=== PATIENT | male | born 1960 | race Two or more races ===

== ENCOUNTER 2016-10-29 00:04 | Observation (INO) | payer OTHER ==
[~2016-10-29] VITALS: Ht 170.2 cm; Wt 86.2 kg
[2016-10-29 00:54] LABS: Basophils # (auto) 0 uL; Basophils % (auto) 0.2 % (0.0-2.0); Eosinophils # (auto) 0 uL; Eosinophils % (auto) 0.4 % (0.0-7.0); Hematocrit 39.5 % (41.0-53.0); Hemoglobin 13.3 g/dL (13.5-17.5); Lymphocytes # (auto) 0.8 uL; Lymphocytes % (auto) 7.6 % (10.0-50.0); Mean Corpuscular Hemoglobin 30.3 pg (28.0-32.0); Mean Corpuscular Hgb Conc. 33.5 g/dL (32.0-36.0); Mean Corpuscular Volume 90.3 fL (80.0-100.0); Mean Platelet Volume 7.9 fL (7.4-10.4); Monocytes # (auto) 0.4 uL; Monocytes % (auto) 3.9 % (0.0-12.0); Neutrophils # (auto) 8.9 uL; Neutrophils % (auto) 87.9 % (37.0-80.0); Platelet Count (auto) 243 10^3/uL (140-450); Red Cell Distribution Width 13.8 % (11.6-16.0); White Blood Cell 10.1 10^3/uL (4.4-10.8)
[2016-10-29 01:10] LABS: INR 1.1 (0.9-1.15); Partial Thromboplastin Time 26.1 sec (22.64-33.71); Prothrombin Time 11.3 sec (9.37-12.3)
[2016-10-29 01:13] LABS: Albumin 3.4 g/dL (3.4-5.0); BUN/Creatinine Ratio 7.7; Calcium 8.1 mg/dL (8.5-10.1); Potassium 3.7 mmol/L (3.5-5.1)
[2016-10-29 01:16] LABS: Bilirubin, Total 0.2 mg/dL (0.2-1.0)
[2016-10-29] MEDS ORDERED: LORazepam 2MG/ML-1ML VIAL IV ONE (03:45)
[2016-10-29] MEDS ORDERED: OXYMETAZOLINE HCL 0.05 % NASAL SPRAY 15ML ONE (05:30)
[2016-10-29 05:54] LABS: Urine Color Yellow (Yellow)
[2016-10-29 05:55] LABS: Urine Bilirubin Negative (Negative); Urine Blood TRACE /uL (Negative); Urine Glucose Normal (Normal); Urine Ketone 2+ (Negative); Urine Urobilinogen Normal (Negative)
[2016-10-29 05:56] LABS: Urine Nitrite Negative (Negative)
[2016-10-29 06:00] VITALS: BP 143/78
[2016-10-29 06:10] LABS: Urine Hyaline Cast FEW /lpf (0 - 2); Urine Mucus FEW (None Seen); Urine RBC 3 /hpf (0 - 3); Urine Squamous Epithelial Cell FEW /hpf (<5)
== END 2016-10-29 07:57 | disposition home or self-care (01) | DRG 101 ==
LOC: EDBD 00:04 → ER 00:12 → OVERFLOW 04:06 → ER 07:57
PROVIDERS: ADMIT Emergency Medicine; ATTEND Emergency Medicine
DX: G40.909 Epilepsy, unspecified, not intractable, without status epilepticus (principal); F19.10 Other psychoactive substance abuse, uncomplicated; R51 Headache; R53.1 Weakness; R42 Dizziness and giddiness; E11.9 Type 2 diabetes mellitus without complications; Z87.820 Personal history of traumatic brain injury
CPT/HCPCS: 36415; 70450; 72125; 80053; 80156; 80164; 81001; 85025; 85610; 85730; 99285; G0378; G0434

== ENCOUNTER 2019-05-23 23:32 | Inpatient (IN) | payer OTHER ==
[~2019-05-23] VITALS: Ht 180.3 cm; Wt 116.0 kg
[2019-05-23] MEDS ORDERED: ETOMIDATE (2MG/ML) 20ML VIAL IV ONE (23:41)
[2019-05-23] MEDS ORDERED: SUCCINYLCHOLINE CHLORIDE 20 MG/ML 10ML VIAL IV ONE (23:42)
[2019-05-23] MEDS: NOREPINEPHRINE 8 MG/250ML KIT 250 ML IV SCH (23:45)
[2019-05-23] MEDS ORDERED: PROPOFOL 100 ML IV ONE (23:54)
[2019-05-24] VITALS (48 sets, daily range): BP systolic 103–168; BP diastolic 62–91
[2019-05-24] MEDS ORDERED: ETOMIDATE (2MG/ML) 20ML VIAL IV ONE
[2019-05-24] MEDS ORDERED: SUCCINYLCHOLINE CHLORIDE 20 MG/ML 10ML VIAL IV ONE
[2019-05-24] MEDS ORDERED: ACCU-CHEK COMFORT CURVE STRIP VI ONE
[2019-05-24] MEDS: PROPOFOL 100 ML IV SCH ×3 (00:02→20:12)
[2019-05-24 00:18] LABS: Basophils # (auto) 0.1 uL; Basophils % (auto) 0.5 % (0.0-2.0); Eosinophils # (auto) 0.1 uL; Eosinophils % (auto) 0.6 % (0.0-7.0); Hemoglobin 14.4 g/dL (13.5-17.5); Lymphocytes % (auto) 21.3 % (10.0-50.0); Mean Corpuscular Hemoglobin 30.7 pg (28.0-32.0); Mean Corpuscular Hgb Conc. 32.7 g/dL (32.0-36.0); Mean Corpuscular Volume 93.9 fL (80.0-100.0); Monocytes # (auto) 0.6 uL; Monocytes % (auto) 4.1 % (0.0-12.0); Neutrophils # (auto) 10.2 uL; Neutrophils % (auto) 73.5 % (37.0-80.0); Nucleated Red Blood Cells % 0.1 %; Platelet Count (auto) 292 10^3/uL (140-450); Red Blood Cells 4.69 10^6/uL (4.5-5.90); Red Cell Distribution Width 14.4 % (11.8-14.3); White Blood Cell 13.9 10^3/uL (4.4-10.8)
[2019-05-24 00:32] LABS: INR 1.02 (0.9-1.15); Partial Thromboplastin Time 25.6 sec (23.64-32.05)
[2019-05-24 00:36] LABS: Urine Bacteria NONE SEEN /hpf (None Seen); Urine Blood TRACE /uL (Negative); Urine Hyaline Cast MANY /lpf (0 - 2); Urine Mucus FEW (None Seen); Urine Specific Gravity 1.019 (1.001-1.035); Urine WBC 3 /hpf (0 - 3)
[2019-05-24 00:37] LABS: Albumin 3.7 g/dL (3.4-5.0); BUN/Creatinine Ratio 8.3; Calcium 8.3 mg/dL (8.5-10.1); Phenytoin (Dilantin) 0.5 ug/mL (10-20); Potassium 3.8 mmol/L (3.5-5.1)
[2019-05-24 00:39] LABS: Bilirubin, Total 0.2 mg/dL (0.2-1.0); Total Protein 8.7 g/dL (6.4-8.2)
[2019-05-24 00:57] LABS: Lactic Acid w/Reflex 8.4 mmol/L (0.4-2.0)
[2019-05-24] MEDS: MIDAZOLAM DRIP 50 mg/50mL 50 ML IV SCH ×4 (00:59→20:13)
[2019-05-24] MEDS ORDERED: SODIUM CHLORIDE 0.9% 3,800 ML IV ONE (01:45)
[2019-05-24] MEDS ORDERED: VANCOMYCIN 1GM/250ML 250 ML IV ONE (01:45)
[2019-05-24] MEDS ORDERED: PIPERACILLIN-TAZOB 3.375GM 100 ML IV ONE (01:45)
[2019-05-24] MEDS ORDERED: LEVETIRACETAM INJ 1,000 MG in D5W 5% 100 ML IV ONE (03:15)
[2019-05-24 03:17] LABS: Alcohol, Urine < 3.0 mg/dL (0-5); Amphetamine Screen, Urine NEGATIVE (NEGATIVE); Barbiturate Scree,Urine NEGATIVE (NEGATIVE); Benzodiazephine Screen, Urine POSITIVE (NEGATIVE); Cannabinoid Screen, Urine NEGATIVE (NEGATIVE); Cocaine Screen, Urine NEGATIVE (NEGATIVE); Opiate Scree,Urine NEGATIVE (NEGATIVE); Phencyclidine Screen, Urine NEGATIVE (NEGATIVE)
[2019-05-24] MEDS ORDERED: LEVETIRACETAM 500 MG/5ML INJ IV ONE (03:23)
[2019-05-24] MEDS ORDERED: NITROGLYCERIN 0.4 MG SL TAB SL PRN (06:00)
[2019-05-24] MEDS: InsuLIN REG 1unit/0.01ml Soln (100units/ml) SC SCH ×4 (06:00→23:32)
[2019-05-24] MEDS ORDERED: ACETAMINOPHEN 325 MG TAB PO PRN (06:00)
[2019-05-24] MEDS ORDERED: MORPHINE SULF INJ 2 MG/ML SYRINGE 1ML IV PRN (06:00)
[2019-05-24] MEDS ORDERED: DEXTROSE (50%) 50ML SYRG IV PRN (06:00)
[2019-05-24] MEDS ORDERED: ONDANSETRON HCL 4 MG/2 ML VIAL IV PRN (06:00)
[2019-05-24] MEDS: ACCU-CHEK COMFORT CURVE STRIP VI SCH ×4 (06:13→23:31)
[2019-05-24] MEDS: SODIUM CHLORIDE 0.9% 1,000 ML IV SCH ×2 (06:31→21:54)
--- NOTE | 2019-05-24 08:05 | NUR ---
RT NOTE: PT. TRANSFERRED TO ICU 112 WITHOUT INCIDENT WITH RN ANIBAL AND [employer] INSTALLER HELPERTIFF POMPA. SENIOR CARE MANAGER IN PLACE. PT. BAGGED WITH 100% O2. PT. PLACED ON VENT WITH ORDERED SETTINGS.
--- NOTE | 2019-05-24 08:10 | NUR ---
Admit to ICU from ER on vent KWAME MOSQUERA admitted to ICU via gurney on bus monitor, intubated and being bagged by Respiratory Therapist. Patient transfered to bed, connected to mechanical ventilator by therapist, CARL at bedside. Patient connected to ICU monitoring, weighed by bedscale, oriented to Maya vargas RN, unit, ventilator and sedation. NOTE:
--- NOTE | 2019-05-24 08:58 | NUR ---
PLACED CON. Noe/ ON HIS CELLPHONE. HE STATED HE WOULD COME SEE THE PATIENT. RN NOTIFIED.
[2019-05-24 09:52] LABS: Basophils # (auto) 0.1 uL; Basophils % (auto) 0.5 % (0.0-2.0); Eosinophils # (auto) 0 uL; Eosinophils % (auto) 0.5 % (0.0-7.0); Hematocrit 35.5 % (41.0-53.0); Hemoglobin 12.3 g/dL (13.5-17.5); Lymphocytes # (auto) 2.3 uL; Lymphocytes % (auto) 23.3 % (10.0-50.0); Mean Corpuscular Hemoglobin 32.1 pg (28.0-32.0); Mean Corpuscular Hgb Conc. 34.7 g/dL (32.0-36.0); Mean Corpuscular Volume 92.7 fL (80.0-100.0); Monocytes # (auto) 0.7 uL; Monocytes % (auto) 7.1 % (0.0-12.0); Neutrophils # (auto) 6.7 uL; Neutrophils % (auto) 68.6 % (37.0-80.0); Nucleated Red Blood Cells % 0.1 %; Platelet Count (auto) 202 10^3/uL (140-450); Red Blood Cells 3.83 10^6/uL (4.5-5.90); White Blood Cell 9.7 10^3/uL (4.4-10.8)
[2019-05-24] MEDS ORDERED: LEVOFLOXACIN 500MG 100 ML IV SCH (10:00)
[2019-05-24 10:15] LABS: Potassium 3.7 mmol/L (3.5-5.1)
[2019-05-24] MEDS ORDERED: cefTRIAXone 1GM/50ML D5W 50 ML IV ONE (10:15)
[2019-05-24] MEDS ORDERED: VANCOMYCIN PER PHARMACY 0 MG IV SCH (10:15)
--- NOTE | 2019-05-24 10:20 | NUR ---
at bedside - examines patient and speaks with patient's daughter at bedside - orders received.
[2019-05-24] MEDS ORDERED: LORazepam 2MG/ML-1ML VIAL IV PRN (10:30)
[2019-05-24 11:23] LABS: Calcium 6.2 mg/dL (8.5-10.1)
[2019-05-24 11:25] LABS: BUN/Creatinine Ratio 7.5
--- NOTE | 2019-05-24 11:35 | NUR ---
notified of BUN and Cr this am - orders received.
[2019-05-24] MEDS: FAMOTIDINE (10MG/ML) 2ML VL IV SCH ×2 (11:37→21:53)
[2019-05-24] MEDS: ENOXAPARIN SOD 40 MG/0.4 ML SYRINGE SC SCH (11:41)
--- NOTE | 2019-05-24 12:50 | NUR ---
Arthur CADENA at bedside placing PICC line.
[2019-05-24] MEDS: VANCOMYCIN 1,500 MG in D5W 5% 250 ML IV SCH ×2 (13:22→22:55)
--- NOTE | 2019-05-24 13:32 | NUR ---
PICC line placement Patient significant other educated on need for PICC line placement. All risks and benefits explained and all questions and concerns addressed prior to procedure. Noted past medical history and allergies with no contraindications. INR and Plt counts within acceptable range. 5fr PICC line inserted via right basilic vein using [employer] US and Tip Location System. Sterile technique with maximum barrier precautions utilized. Blood return obtained from each of 3 lumens and each flushed easily with NS using proper technique. PICC secured with Stat-lock; biodisc and occlusive dressing applied. Stat portable chest x-ray obtained for PICC tip placement. *Baseline Arm Circumference 32cm. PICC lot #[id number]. INTERNAL LENGTH 50CM EXTERNAL LENGTH 2 CM
--- NOTE | 2019-05-24 13:52 | NUR ---
OK to use PICC line Xray completed. OK to use PICC line by RADIOLOGIST REPORT. NURSE ADEN NOTIFIED.
--- NOTE | 2019-05-24 13:55 | NUR ---
visits et examines patient - no new orders received.
--- NOTE | 2019-05-24 14:15 | NUR ---
visits et examines patient - orders received.
[2019-05-24] MEDS ORDERED: LEVETIRACETAM INJ 1,000 MG in D5W 5% 100 ML IV SCH (15:00)
--- NOTE | 2019-05-24 16:30 | NUR ---
Temp 100.0 - cooling measures started and ice backs applied to bilat axilla, groin - will continue to monitor temp.
[2019-05-24] MEDS: LEVETIRACETAM INJ 1,000 MG in D5W 5% 100 ML IV SCH (16:47)
[2019-05-24] MEDS ORDERED: LEVE500T22 PO (17:48)
[2019-05-24] MEDS ORDERED: METF-370 PO (17:48)
[2019-05-24] MEDS ORDERED: OXYM0.0511 NAS (17:48)
[2019-05-24] MEDS ORDERED: GLIP-102 PO (17:48)
[2019-05-24] MEDS ORDERED: DIVA500T53 PO (17:48)
[2019-05-24] MEDS ORDERED: GREE250C PO (17:48)
[2019-05-24] MEDS ORDERED: CARB200T PO (17:48)
[2019-05-24] MEDS ORDERED: MULT1TAB61 PO (17:48)
[2019-05-24] MEDS ORDERED: FLUO0.0127 OT (17:48)
[2019-05-24] MEDS ORDERED: ATOR20TA PO (17:48)
[2019-05-24] MEDS ORDERED: DIPH25CA66 PO (17:48)
--- NOTE | 2019-05-24 19:30 | NUR ---
Opening notes Assumed care, laying on bed, intubated and sedated with versed and propofol infusing in the right upper arm, NGT in place, PIV's in both hands patent and intact, rodgers catheter draining to a clear, yellow urine, SCD's to bilateral legs. Bed in lowest position with padded side rails up, bed alarm on. Will continue care.
--- NOTE | 2019-05-24 19:30 | NUR ---
Opening Shift Note Received pt on mechanical ventilator sedated on versed gtt and propofol gtt. Pt rodriguez snot open eyes to stimuli, but withdraws to pain. Positive cough/gag. Pupils are 3 and sluggish, round bilaterally. Full assessment done see interventions. OGT in place clamped and placement verified. JETT PICC line, dressing CDI, with good blood return in 3 ports. See IV spreadsheet for infusion details. Skin assessment done see interventions. Abdomen large round, and soft. All pulses palpable. Rectal temp monitoring in place, pt at 99.0 f. Padded side rails, bed rails up x2, bed locked in lowest position. All alarms on and audible. Pt in full view of RN. No indications of pain present. VSS. Will continue to monitor closely. Addendum: 05/25/19 at 4998 by AURELIO CERDA RN WRONG DATE ENTERED. CORRECT DATE: 05/25 AT 1930.
--- NOTE | 2019-05-24 20:00 | NUR ---
Swelling on right hand noted, IV discontinued, pressure dressing applied.
[2019-05-24 20:10] LABS: BUN/Creatinine Ratio 3.6; Calcium 6.9 mg/dL (8.5-10.1); Potassium 3.6 mmol/L (3.5-5.1)
[2019-05-24] MEDS: VALPROATE INJ 500 MG in SODIUM CHL 0.9% 100 ML IV SCH (21:47)
[2019-05-24] MEDS: NOREPINEPHRINE 8 MG/250ML KIT 250 ML IV SCH (23:45)
[2019-05-25] VITALS (102 sets, daily range): BP systolic 136–168; BP diastolic 66–81
[2019-05-25] MEDS: LEVETIRACETAM INJ 1,000 MG in D5W 5% 100 ML IV SCH ×4 (00:32→22:59)
[2019-05-25] MEDS: MIDAZOLAM DRIP 50 mg/50mL 50 ML IV SCH ×3 (01:44→19:41)
[2019-05-25] MEDS: PROPOFOL 100 ML IV SCH ×2 (03:00→08:45)
--- NOTE | 2019-05-25 03:58 | NUR ---
Patient bathe/linen change Patient given complete bath. Skin integrity assessed for any changes. Linens and gown changed. Patient repositioned for comfort.
[2019-05-25 04:32] LABS: Basophils # (auto) 0 uL; Basophils % (auto) 0.4 % (0.0-2.0); Eosinophils # (auto) 0 uL; Eosinophils % (auto) 0.4 % (0.0-7.0); Hemoglobin 13.5 g/dL (13.5-17.5); Lymphocytes # (auto) 3.1 uL; Lymphocytes % (auto) 31.8 % (10.0-50.0); Mean Corpuscular Hemoglobin 31.1 pg (28.0-32.0); Mean Corpuscular Hgb Conc. 33.8 g/dL (32.0-36.0); Mean Corpuscular Volume 91.8 fL (80.0-100.0); Monocytes # (auto) 0.7 uL; Monocytes % (auto) 6.9 % (0.0-12.0); Neutrophils % (auto) 60.5 % (37.0-80.0); Platelet Count (auto) 223 10^3/uL (140-450); Red Blood Cells 4.36 10^6/uL (4.5-5.90); Red Cell Distribution Width 14.2 % (11.8-14.3); White Blood Cell 9.9 10^3/uL (4.4-10.8)
[2019-05-25 04:52] LABS: BUN/Creatinine Ratio 4.1; Calcium 8.1 mg/dL (8.5-10.1); Potassium 3.6 mmol/L (3.5-5.1)
[2019-05-25 04:55] LABS: Bilirubin, Total 0.2 mg/dL (0.2-1.0); Total Protein 7.5 g/dL (6.4-8.2)
[2019-05-25] MEDS: ACCU-CHEK COMFORT CURVE STRIP VI SCH ×3 (05:25→18:20)
[2019-05-25] MEDS: VALPROATE INJ 500 MG in SODIUM CHL 0.9% 100 ML IV SCH ×3 (05:31→21:40)
[2019-05-25] MEDS: InsuLIN REG 1unit/0.01ml Soln (100units/ml) SC SCH ×3 (05:31→18:20)
[2019-05-25] MEDS: SODIUM CHLORIDE 0.9% 1,000 ML IV SCH ×2 (07:00→19:41)
--- NOTE | 2019-05-25 09:00 | NUR ---
NEURO PATIENT WITHDRAWS EASILY TO PAIN, PERRLA 3MM AND BRISK, ACTIVE COUGH/GAG REFLEX NOTED. SEDATION VACATION HELD. PATIENT MOVING BILAT UPPER EXTREMITIES FREQUENTLY - VERSED INCREASED - WILL CONTINUE TO MONITOR. Addendum: 05/25/19 at 1621 by Maya Meyer RN Amended: Links added.
--- NOTE | 2019-05-25 09:20 | NUR ---
EEG COMPLETED AT BEDSIDE. RN ADEN AWARE.
[2019-05-25] MEDS: cefTRIAXone 1GM/50ML D5W 50 ML IV SCH (10:10)
[2019-05-25] MEDS: FAMOTIDINE (10MG/ML) 2ML VL IV SCH ×2 (10:28→21:40)
[2019-05-25] MEDS: ENOXAPARIN SOD 40 MG/0.4 ML SYRINGE SC SCH (10:29)
[2019-05-25] MEDS: VANCOMYCIN 1,500 MG in D5W 5% 250 ML IV SCH ×2 (12:54→23:37)
[2019-05-25] MEDS: NOREPINEPHRINE 8 MG/250ML KIT 250 ML IV SCH (23:45)
[2019-05-26] VITALS (93 sets, daily range): BP systolic 117–160; BP diastolic 54–78
[2019-05-26] MEDS: InsuLIN REG 1unit/0.01ml Soln (100units/ml) SC SCH ×4 (00:13→18:01)
[2019-05-26] MEDS: ACCU-CHEK COMFORT CURVE STRIP VI SCH ×4 (00:13→18:01)
--- NOTE | 2019-05-26 02:58 | NUR ---
BILATERAL MITTENS APPLIED FOR PT SAFETY, SEDATION IS BEING TITRATED DOWN FOR C/PAP TRIAL IN AM.
[2019-05-26 04:17] LABS: Basophils # (auto) 0.1 uL; Basophils % (auto) 0.9 % (0.0-2.0); Eosinophils # (auto) 0.1 uL; Hematocrit 37.6 % (41.0-53.0); Lymphocytes # (auto) 1.3 uL; Lymphocytes % (auto) 16.1 % (10.0-50.0); Mean Corpuscular Hemoglobin 31.9 pg (28.0-32.0); Mean Corpuscular Hgb Conc. 34.6 g/dL (32.0-36.0); Mean Corpuscular Volume 92.3 fL (80.0-100.0); Monocytes # (auto) 0.6 uL; Monocytes % (auto) 7.5 % (0.0-12.0); Neutrophils % (auto) 74.5 % (37.0-80.0); Platelet Count (auto) 196 10^3/uL (140-450); Red Blood Cells 4.08 10^6/uL (4.5-5.90); Red Cell Distribution Width 14.1 % (11.8-14.3); White Blood Cell 8.1 10^3/uL (4.4-10.8)
[2019-05-26 04:32] LABS: Albumin 2.7 g/dL (3.4-5.0); BUN/Creatinine Ratio 4.3; Calcium 8.1 mg/dL (8.5-10.1); Potassium 3.4 mmol/L (3.5-5.1)
[2019-05-26 04:34] LABS: Bilirubin, Total 0.4 mg/dL (0.2-1.0); Total Protein 7.2 g/dL (6.4-8.2)
--- NOTE | 2019-05-26 04:58 | NUR ---
CARES PT GIVEN BED BATH AND PARTIAL LINEN CHANGE PERFORMED. PT HAD DARK BROWN BM SMEAR. SKIN INTEGRITY ASSESSED FOR ANY CHANGES, NONE NOTED. ORAL CARE RENDERED. WILL CONTINUE CARE.
[2019-05-26] MEDS: VALPROATE INJ 500 MG in SODIUM CHL 0.9% 100 ML IV SCH ×3 (05:31→21:24)
--- NOTE | 2019-05-26 05:37 | NUR ---
IV removal IV TO LEFT HAND DC'd with sterile technique, catheter fully intact. Pressure dressing applied to site. Patient tolerated procedure well.
[2019-05-26] MEDS: LEVETIRACETAM INJ 1,000 MG in D5W 5% 100 ML IV SCH ×3 (07:16→23:00)
--- NOTE | 2019-05-26 07:31 | NUR ---
End of Shift Note PT awakens easily while off sedation but does not follow commands and attempting to pull at ET tube and pull mittens off. Report given to SURINDER Dexter to assume care.
[2019-05-26] MEDS: SODIUM CHLORIDE 0.9% 1,000 ML IV SCH (08:00)
[2019-05-26] MEDS ORDERED: POTASSIUM CHLORIDE 20 MEQ, LIDOCAINE 1% (LOCAL ANESTH.) 2 ML in SODIUM CHL 0.9% 100 ML IV ONE (09:30)
--- NOTE | 2019-05-26 09:45 | NUR ---
DR LITTLE VISITS AND EXAMINES PATIENT - NEW ORDERS RECEIVED.
--- NOTE | 2019-05-26 09:50 | NUR ---
SEDATION OF MAXIMERIVAN AND VERSED TURNED OFF FOR PENDING CPAP TRIAL.
--- NOTE | 2019-05-26 09:50 | NUR ---
Respiratory note: PAGED TO ICU 112 TO BEGIN CPAP. COULD NOT START CPAP TRIAL DUE TO PT STILL BEING SEDATED ON VERSED, AND DIPRIVAN. RN STOPPED SEDATION AT 0950. RN AND I AGREED THAT WE WILL ATTEMPT CPAP TRIAL WHEN PT IS COMPLETELY OFF OF SEDATION, AND CAN RESPOND TO VERBAL COMMANDS.
[2019-05-26] MEDS: cefTRIAXone 1GM/50ML D5W 50 ML IV SCH (10:02)
[2019-05-26] MEDS: ENOXAPARIN SOD 40 MG/0.4 ML SYRINGE SC SCH (10:25)
[2019-05-26] MEDS: FAMOTIDINE (10MG/ML) 2ML VL IV SCH ×2 (10:25→21:25)
--- NOTE | 2019-05-26 10:45 | NUR ---
SOFT BILAT WRIST RESTRAINTS APPLIED BILAT DUE TO PATIENT ATTEMPTING TO EXTUBATE SELF WITH BILAT MITTS IN PLACE. PATIENT REMOVED MITTS AND REACHING FOR ETT- DR LITTLE NOTIFIED.
--- NOTE | 2019-05-26 11:02 | NUR ---
1030 05/26/19 I called [facility] [phone] and spoke with network support analyst Minor to request inpatient authorization for today 05/26 and yesterday 05/25. He verified that they did receive clinical information today on this member. He stated that continued authorization can not be given until today's clinical information is reviewed by the outpatient case manager. He will have the assigned outpatient case manager give me a call. I faxed Notice Regarding Post Stabilization to [phone].
--- NOTE | 2019-05-26 11:20 | NUR ---
I faxed transfer order to [facility].
[2019-05-26] MEDS: VANCOMYCIN 1,500 MG in D5W 5% 250 ML IV SCH (11:30)
--- NOTE | 2019-05-26 13:05 | NUR ---
Respiratory note: CPAP TRIAL UNSUCCESSFUL DO TO PT BEING UNABLE TO STAY AWAKE, AND FOLLOW COMMANDS. RN AT BEDSIDE, AND INFORMED.
--- NOTE | 2019-05-26 13:15 | NUR ---
ATTEMPTED CPAP TRIAL - PATIENT AWAKE AND FOLLOWING COMMANDS WITH DAUGHTER AT BEDSIDE. PARAMETERS DONE PER RT. AFTER FEW MINUTES PATIENT BEGAN WITH SMALL VOLUMES OF 100 - PLACED BACK ON CPAP MODE PER RT - DR TORRES AWARE.
--- NOTE | 2019-05-26 13:30 | NUR ---
DR TORRES VISITS AND EXAMINES PATIENT - NO NEW ORDERS RECEIVED.
[2019-05-26 14:30] LABS: BUN/Creatinine Ratio 4.1; Calcium 8.3 mg/dL (8.5-10.1); Potassium 3.4 mmol/L (3.5-5.1)
--- NOTE | 2019-05-26 15:30 | NUR ---
SEDATION RE-STARTED - SEE IV FLOWSHEET.
--- NOTE | 2019-05-26 15:40 | NUR ---
ASKEW BaroFold - UPDATE GIVEN ON CLINICAL CONDITION.
--- NOTE | 2019-05-26 15:52 | NUR ---
NUTRITION ASSESSMENT NOTES Please refer to link notes of nutrition screen form filed under the intervention section of the plan of care for further details. Est. Needs: 1750 kcal to 2300 kcal (15-20 kcal/kgBW), 93 gms to 116 gms pro (0.8-1.0 gms/kgBW). Will continue to monitor pertinent labs and reassess nutrient need prn Thank you. Addendum: 05/26/19 at [address] Amended: Links added.
--- NOTE | 2019-05-26 16:01 | NUR ---
EVIE GATES RE: MRSA BLOOD. Addendum: 05/26/19 at 1631 by Maya Meyer RN ERROR - WRONG CHART
--- NOTE | 2019-05-26 16:30 | NUR ---
BILAT SOFT WRIST RESTRAINTS REMOVED. PATIENT SEDATED ON VERSED AND DIPRIVAN.
[2019-05-26] MEDS ORDERED: VANCOMYCIN 1,500 MG in D5W 5% 250 ML IV SCH (19:00)
--- NOTE | 2019-05-26 19:30 | NUR ---
Opening Shift Note Received pt on mechanical ventilator sedated on versed gtt and propofol gtt. Pt does not open eyes to stimuli, but withdraws to pain. Positive cough/gag. Per AM nurse, pt failed c/pap trial. Possible transfer to [facility]. Pupils are 3 and sluggish, round bilaterally. Full assessment done see interventions. OGT in place clamped and placement verified. JETT PICC line, dressing CDI, with good blood return in 3 ports. See IV spreadsheet for infusion details. Skin assessment done see interventions. Abdomen large round, and soft. All pulses palpable. Oral temp at this is 100.1. Cooling measures initiated. Padded side rails, bed rails up x2, bed locked in lowest position. All alarms on and audible. Pt in full view of RN. No indications of pain present. VSS. Will continue to monitor closely.
--- NOTE | 2019-05-26 20:00 | NUR ---
[facility], FROM [facility], CALLED TO INFORM OF PT'S BED ASSIGNMENT RM [id number] AND ACCEPTING PHYSICIAN, DR. HERNANDEZ.
--- NOTE | 2019-05-26 20:30 | NUR ---
Family Daughter was called to update on pt being transferred to [facility]. All questions and concerns addressed at this time.
--- NOTE | 2019-05-26 22:00 | NUR ---
[facility]AR CALLED FOR UPDATE ON PT'S CURRENT VITAL SIGNS. SCHEDULE PICKUP TIME FROM [facility] IS ESTIMATED AT 2300.
--- NOTE | 2019-05-26 23:08 | NUR ---
REPORT GIVEN TO SURINDER RODRIGUEZ AT [facility] ICU.
[2019-05-27] VITALS: BP 134/63
--- NOTE | 2019-05-27 00:10 | NUR ---
[facility] TEAM HERE TO BATTERY BUILDER PATIENT FOR TRANSFER.
[2019-05-27 00:15] VITALS: BP 131/65
[2019-05-27] MEDS: ACCU-CHEK COMFORT CURVE STRIP VI SCH (00:23)
[2019-05-27] MEDS: InsuLIN REG 1unit/0.01ml Soln (100units/ml) SC SCH (00:23)
--- NOTE | 2019-05-27 00:45 | NUR ---
PT ON [facility] AND VENT LEAVING UNIT.
--- NOTE | 2019-05-27 00:50 | NUR ---
PT HAS LEFT THE UNIT VIA [facility] TEAM ON STRETCHER
[2019-05-27 00:53] VITALS: BP 139/69
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
== END 2019-05-27 00:45 | disposition short-term general hospital (02) | DRG 871 ==
LOC: EDBD 23:32 → ER 23:35 → TELE 23:36 → ICU WEST 05-24 08:09
PROVIDERS: ADMIT Nurse Practitioner; ATTEND Internal Medicine
PROC: 5A1945Z Respiratory Ventilation, 24-96 Consecutive Hours (ICD-10-PCS; principal; 2019-05-24)
PROC: 0BH17EZ Insertion of Endotracheal Airway into Trachea, Via Natural or Artificial Opening (ICD-10-PCS; 2019-05-24)
PROC: 02HV33Z Insertion of Infusion Device into Superior Vena Cava, Percutaneous Approach (ICD-10-PCS; 2019-05-24)
DX: A41.9 Sepsis, unspecified organism (principal); J69.0 Pneumonitis due to inhalation of food and vomit; N17.0 Acute kidney failure with tubular necrosis; J96.01 Acute respiratory failure with hypoxia; E87.3 Alkalosis; J98.11 Atelectasis; E44.0 Moderate protein-calorie malnutrition; R57.9 Shock, unspecified; D63.8 Anemia in other chronic diseases classified elsewhere; E11.22 Type 2 diabetes mellitus with diabetic chronic kidney disease; N18.9 Chronic kidney disease, unspecified; E11.21 Type 2 diabetes mellitus with diabetic nephropathy; E66.9 Obesity, unspecified; E78.5 Hyperlipidemia, unspecified; G40.401 Other generalized epilepsy and epileptic syndromes, not intractable, with status epilepticus; F17.200 Nicotine dependence, unspecified, uncomplicated; Z79.899 Other long term (current) drug therapy; Z80.9 Family history of malignant neoplasm, unspecified; Z82.49 Family history of ischemic heart disease and other diseases of the circulatory system; Z83.3 Family history of diabetes mellitus; Z85.72 Personal history of non-Hodgkin lymphomas; Z87.820 Personal history of traumatic brain injury; Z68.35 Body mass index [BMI] 35.0-35.9, adult
CPT/HCPCS: 31500; 36415; 36569; 36600; 51702; 70450; 71045; 72125; 80048; 80053; 80156; 80185; 80202; 80307; 81001; 82542; 82550; 82805; 82962; 83036; 83605; 84443; 85025; 85610; 85730; 87040; 87070; 87081; 87205; 93005; 94002; 94003; 94761; 95819; 96365; 96366; 96368; 99291; G0378; J0330; J0696; J1815; J2001; J2250; J2543; J2704; J3490; J7060

== ENCOUNTER 2022-05-24 15:15 | Inpatient (IN) | payer OTHER ==
[~2022-05-24] VITALS: Ht 185.4 cm; Wt 112.2 kg
[~2022-05-24 15:15] MED LIST: ATOR20TA PO; CARB200T PO; DIPH25CA66 PO; DIVA500T2 PO; FLUO0.0127 OT; GLIP-197 PO; GREE250C PO; LEVE500T32 PO; METF-370 PO; MULT1TAB61 PO; OXYM0.0511 NAS
[2022-05-24] MEDS ORDERED: DEXTROSE (50%) 50ML SYRG IV ONE (15:25)
[2022-05-24] MEDS ORDERED: SODIUM BICARBONATE 8.4% INJ 50ML SYRINGE IV ONE (15:25)
[2022-05-24] MEDS ORDERED: EPINEPHrine HCL 1 MG/10 ML SYRG IV ONE (15:25)
[2022-05-24] MEDS ORDERED: LORazepam 2MG/ML-1ML VIAL IV ONE (15:30)
[2022-05-24] MEDS ORDERED: SODIUM CHLORIDE 0.9% 1,000 ML IVB ONE (15:30)
[2022-05-24 15:44] LABS: Basophils # (auto) 0.1 10 ^3/uL (0-0.2); Basophils % (auto) 0.4 % (0.0-2.0); Eosinophils # (auto) 0.1 10 ^3/uL (0-0.8); Eosinophils % (auto) 0.9 % (0.0-7.0); Hematocrit 45.8 % (41.0-53.0); Hemoglobin 14.2 g/dL (13.5-17.5); Lymphocytes # (auto) 7.9 10 ^3/uL (0.4-5.4); Lymphocytes % (auto) 48.3 % (10.0-50.0); Mean Corpuscular Hemoglobin 29.3 pg (28.0-32.0); Mean Corpuscular Hgb Conc. 30.9 g/dL (32.0-36.0); Mean Corpuscular Volume 94.9 fL (80.0-100.0); Monocytes # (auto) 0.9 10 ^3/uL (0-1.3); Monocytes % (auto) 5.6 % (0.0-12.0); Neutrophils # (auto) 7.3 10 ^3/uL (1.6-8.6); Neutrophils % (auto) 44.8 % (37.0-80.0); Nucleated Red Blood Cells % 0.1 %; Red Blood Cells 4.83 10^6/uL (4.5-5.90); Red Cell Distribution Width 14.4 % (11.8-14.3); White Blood Cell 16.4 10^3/uL (4.4-10.8)
[2022-05-24 16:02] LABS: INR 1.01 (0.9-1.15)
[2022-05-24 16:04] LABS: Albumin 4.1 g/dL (3.4-5.0); BUN/Creatinine Ratio 6.4; Calcium 8.9 mg/dL (8.5-10.1)
[2022-05-24 16:07] LABS: Bilirubin, Total 0.2 mg/dL (0.2-1.0); Total Protein 9.3 g/dL (6.4-8.2)
[2022-05-24 16:35] LABS: Urine Bacteria FEW /hpf (None Seen); Urine Blood TRACE /uL (Negative); Urine Hyaline Cast FEW /lpf (0 - 2); Urine Specific Gravity 1.013 (1.001-1.035); Urine WBC 1 /hpf (0 - 3)
[2022-05-24 16:46] LABS: Alcohol, Urine < 3.0 mg/dL (0-10); Amphetamine Screen, Urine NEGATIVE (NEGATIVE); Barbiturate Scree,Urine NEGATIVE (NEGATIVE); Benzodiazephine Screen, Urine POSITIVE (NEGATIVE); Cannabinoid Screen, Urine POSITIVE (NEGATIVE); Cocaine Screen, Urine NEGATIVE (NEGATIVE); Opiate Scree,Urine NEGATIVE (NEGATIVE); Phencyclidine Screen, Urine NEGATIVE (NEGATIVE)
[2022-05-24 19:09] LABS: Acetaminophen < 2.0 ug/mL (10-30); Salicylate 1.8 mg/dL (2.8-20.0)
[2022-05-24 19:11] LABS: Lactic Acid w/Reflex 3.1 mmol/L (0.4-2.0)
[2022-05-24] MEDS ORDERED: ASPirin 325 MG TAB PO ONE (19:45)
[2022-05-24] MEDS ORDERED: NITROGLYCERIN 0.4 MG SL TAB SL PRN (21:00)
[2022-05-24] MEDS ORDERED: TEMAZEPAM 15 MG CAP PO PRN (21:00)
[2022-05-24] MEDS ORDERED: ONDANSETRON HCL 4 MG/2 ML VIAL IV PRN (21:00)
[2022-05-24] MEDS ORDERED: MORPHINE SULFATE INJ 2 MG/ml SYRG IV PRN (21:00)
[2022-05-24] MEDS ORDERED: ACETAMINOPHEN 325 MG TAB PO PRN (21:00)
[2022-05-24] MEDS ORDERED: cefTRIAXone 1GM/50ML D5W 50 ML IV ONE (21:00)
[2022-05-24] MEDS ORDERED: LORazepam 2MG/ML-1ML VIAL IV PRN (21:00)
[2022-05-24] MEDS ORDERED: DEXTROSE (50%) 50ML SYRG IV PRN (21:00)
[2022-05-24] MEDS ORDERED: ENOXAPARIN SOD 150 MG/1 ML SYRINGE SC ONE (21:15)
[2022-05-24] MEDS: ATORVASTATIN 20 MG TAB PO SCH (23:04)
[2022-05-25] MEDS: ACCU-CHEK COMFORT CURVE STRIP VI SCH ×5 (00:44→23:46)
[2022-05-25] MEDS: InsuLIN REG 1unit/0.01ml Soln (100units/ml) SC SCH ×5 (00:46→23:47)
[2022-05-25 04:09] VITALS: BP 128/68
[2022-05-25 07:11] LABS: Hemoglobin 12.7 g/dL (13.5-17.5); Mean Corpuscular Hemoglobin 30.1 pg (28.0-32.0); Mean Corpuscular Hgb Conc. 33.3 g/dL (32.0-36.0); Mean Corpuscular Volume 90.5 fL (80.0-100.0); Red Cell Distribution Width 14.2 % (11.8-14.3); White Blood Cell 9.3 10^3/uL (4.4-10.8)
[2022-05-25 07:32] LABS: Basophils % (manual) 0 (0.0-2.0); Blast Cells 0; Eosinophils % (manual) 0 (0-7); Metamyelocytes % 0; Myelocytes % 0; Promyelocytes % 0; Reactive Lymphocytes 0
[2022-05-25 07:46] LABS: BUN/Creatinine Ratio 8.3; Bilirubin, Total 0.4 mg/dL (0.2-1.0); Calcium 8.1 mg/dL (8.5-10.1); Total Protein 7.4 g/dL (6.4-8.2)
[2022-05-25 08:04] LABS: Band Neutrophils % (manual) 1; Lymphocytes % (manual) 11 (10.0-50.0); Monocytes % (manual) 19 (0-12)
[2022-05-25] MEDS: cefTRIAXone 1GM/50ML D5W 50 ML IV SCH (08:39)
[2022-05-25] MEDS: levETIRAcetam 500 MG TAB PO SCH ×2 (09:00→21:48)
[2022-05-25] MEDS: PANTOPRAZOLE 40 MG TAB PO SCH (09:00)
[2022-05-25] MEDS: LISINOPRIL 10 MG TAB PO SCH (09:01)
[2022-05-25] MEDS: ASPirin 81 mg TAB PO SCH (09:02)
[2022-05-25 09:24] VITALS: BP 139/63
[2022-05-25] MEDS ORDERED: ENOXAPARIN SOD 40 MG/0.4 ML SYRINGE SC SCH (10:00)
[2022-05-25] MEDS ORDERED: carBAMazepine 200 MG TAB PO SCH (10:00)
[2022-05-25 12:38] VITALS: BP 134/66
[2022-05-25 17:37] VITALS: BP 121/58
[2022-05-25] MEDS: carBAMazepine 200 MG TAB PO SCH (21:45)
[2022-05-25] MEDS: ATORVASTATIN 20 MG TAB PO SCH (21:48)
[2022-05-25 22:00] VITALS: BP 132/80
[2022-05-26] MEDS: carBAMazepine 200 MG TAB PO SCH ×2 (00:57→09:21)
[2022-05-26 05:00] VITALS: BP 124/64
[2022-05-26 05:15] LABS: Basophils # (auto) 0 10 ^3/uL (0-0.2); Basophils % (auto) 0.3 % (0.0-2.0); Eosinophils # (auto) 0.1 10 ^3/uL (0-0.8); Eosinophils % (auto) 0.8 % (0.0-7.0); Hematocrit 37.7 % (41.0-53.0); Hemoglobin 12.9 g/dL (13.5-17.5); Lymphocytes # (auto) 2.4 10 ^3/uL (0.4-5.4); Lymphocytes % (auto) 32.3 % (10.0-50.0); Mean Corpuscular Hemoglobin 30.8 pg (28.0-32.0); Mean Corpuscular Hgb Conc. 34.2 g/dL (32.0-36.0); Mean Corpuscular Volume 90.1 fL (80.0-100.0); Monocytes # (auto) 0.5 10 ^3/uL (0-1.3); Monocytes % (auto) 6.6 % (0.0-12.0); Neutrophils # (auto) 4.5 10 ^3/uL (1.6-8.6); Red Blood Cells 4.18 10^6/uL (4.5-5.90); White Blood Cell 7.4 10^3/uL (4.4-10.8)
[2022-05-26 05:28] LABS: Calcium 8.6 mg/dL (8.5-10.1); Potassium 4.3 mmol/L (3.5-5.1)
[2022-05-26 05:31] LABS: BUN/Creatinine Ratio 14.3
[2022-05-26] MEDS: ACCU-CHEK COMFORT CURVE STRIP VI SCH ×2 (05:57→13:51)
[2022-05-26] MEDS: InsuLIN REG 1unit/0.01ml Soln (100units/ml) SC SCH ×2 (05:57→13:56)
[2022-05-26 08:00] VITALS: BP 146/89
[2022-05-26] MEDS: cefTRIAXone 1GM/50ML D5W 50 ML IV SCH (09:20)
[2022-05-26] MEDS: ASPirin 81 mg TAB PO SCH (09:20)
[2022-05-26] MEDS: PANTOPRAZOLE 40 MG TAB PO SCH (09:20)
[2022-05-26] MEDS: levETIRAcetam 500 MG TAB PO SCH (09:21)
[2022-05-26] MEDS: LISINOPRIL 10 MG TAB PO SCH (09:23)
[2022-05-26 11:56] VITALS: BP 125/79
[2022-05-26] MEDS ORDERED: DIVA500T2 PO (12:12)
[2022-05-26] MEDS ORDERED: LEVE100012 PO (12:12)
[2022-05-26 16:39] VITALS: BP 121/58
[2022-05-26 16:50] VITALS: BP 121/58
== END 2022-05-26 18:27 | disposition home or self-care (01) | DRG 100 ==
LOC: EDBD 15:15 → ER 15:24 → TELE 20:46 → TELE-EAST 05-25 02:45
PROVIDERS: ADMIT Nurse Practitioner; ATTEND Internal Medicine
DX: G40.401 Other generalized epilepsy and epileptic syndromes, not intractable, with status epilepticus (principal); I21.A1 Myocardial infarction type 2; E87.20 Acidosis, unspecified; R65.10 Systemic inflammatory response syndrome (SIRS) of non-infectious origin without acute organ dysfunction; E11.9 Type 2 diabetes mellitus without complications; E66.9 Obesity, unspecified; Z20.822 Contact with and (suspected) exposure to COVID-19; Z68.32 Body mass index [BMI] 32.0-32.9, adult; E78.5 Hyperlipidemia, unspecified; I10 Essential (primary) hypertension; I16.0 Hypertensive urgency; Z79.4 Long term (current) use of insulin; Z79.899 Other long term (current) drug therapy; Z82.3 Family history of stroke; Z82.49 Family history of ischemic heart disease and other diseases of the circulatory system; Z83.3 Family history of diabetes mellitus; Z87.820 Personal history of traumatic brain injury
CPT/HCPCS: 36415; 36600; 70450; 71045; 80048; 80053; 80307; 80320; 80329; 81001; 82010; 82805; 82962; 83036; 83605; 83880; 84484; 85007; 85025; 85027; 85610; 85730; 87040; 93005; 93306; 95819; 96365; 96367; 96372; 96375; 97163; 99291; G0378; J0696; J1815; J7060